=== PATIENT | female | born 1980 | race Caucasian/White ===

== ENCOUNTER → 2021-06-14 18:10 | Outpatient (CLI) | payer OTHER, SELFPAY ==
--- NOTE | 2021-06-14 | DI.RAD.S_ITS ---
PROCEDURE: XR KNEE LT 3V INDICATIONS: Left Knee DJD TECHNIQUE: 3 views of the knee were acquired. COMPARISON: None. FINDINGS: Bones: No fractures or dislocations. No suspicious bony lesions. Soft tissues: No joint effusion. No suspicious soft tissue calcifications. IMPRESSION: No definite radiographic abnormality. If pain persists with conservative management, consider cross sectional imaging such as CT or MRI for further assessment. Dictated by: Lazaro Holbrook [facility] Interpreted: Ambrosio Gasca MD on 06/15/2021 at 9:58 Transcribed by: [email or web address] on 06/15/2021 at 9:58 Approved by: Ambrosio Gasca M.D. on 06/15/2021 at 15:52
== END ==
PROVIDERS: PCP Family Medicine; Referring Provider Family Medicine; Visit Provider Family Medicine
DX: M17.12 Unilateral primary osteoarthritis, left knee (principal)
CPT/HCPCS: 73562